=== PATIENT | male | born 1990 | race Caucasian/White ===

== ENCOUNTER 2024-08-01 23:26 | Emergency (ER) | payer SELFPAY ==
[~2024-08-01] VITALS: Ht 170.2 cm; Wt 81.6 kg
[2024-08-01 23:57] VITALS: O2SAT 100
[2024-08-02] MEDS ORDERED: AMOX1TAB16 MT (01:49)
[2024-08-02] MEDS ORDERED: IBUP-2029 MT (01:49)
[2024-08-02 03:05] VITALS: BP 149/80; PULSE 65; RESP 18; TEMP 37.00296; O2SAT 100
== END 2024-08-02 03:06 | disposition home or self-care (01) ==
LOC: ER 23:26
DX: K04.7 Periapical abscess without sinus (principal); Z90.49 Acquired absence of other specified parts of digestive tract
CPT/HCPCS: 99283